=== PATIENT | female | born 1955 | race Caucasian/White ===

== ENCOUNTER 2016-12-05 17:45 | Inpatient (IN) | payer MEDICARE ==
--- NOTE | 2016-12-05 18:49 | EDPRACDOC ---
- General Information Chief Complaint: Abdominal Pain Stated Complaint: ABD PAIN; SBO SENT FROM PCP Time Seen by Provider: 12/05/16 18:32 Mode Of Arrival: Car Home Medications: Home Medications Aspirin (Enteric Coated) [Halfprin] 81 mg PO DAILY 01/02/14 Calcium Carbonate/Vitamin D3 [Calcium + Vit D Caplet (600mg/400IU)] 1 tab PO DAILY 01/02/14 [place]-3 Fatty Acids/Fish Oil [Fish Oil 1,000 mg Softgel] 1,000 mg PO DAILY 01/02 PEG-Electrolytes (Miralax) [Miralax] 17 gm PO DAILY 06/21/16 Ketorolac Tromethamine 10 mg PO Q6H PRN #20 tab 09/26/16 Allergies/Adverse Reactions: Allergies Allergy/AdvReac Type Severity Reaction Status Date / Time cephalexin [Cephalexin] Allergy Unknown Unknown/See Verified 12/05/16 18:23 Comments ciprofloxacin [From Cipro] Allergy Unknown Unknown/See Verified 12/05/16 18:23 Comments erythromycin base Allergy Unknown Unknown/See Verified 12/05/16 18:23 [Erythromycin Base] Comments metoclopramide HCl Allergy Unknown Difficulty Verified 12/05/16 18:23 [From Reglan] Breathing oxycodone [Oxycodone] Allergy Unknown Unknown/See Verified 12/05/16 18:23 Comments Penicillins Allergy Unknown Nausea/Vomi Verified 12/05/16 18:23 ting prochlorperazine maleate Allergy Unknown Unknown/See Verified 12/05/16 18:23 [From Compazine] Comments propoxyphene napsylate Allergy Unknown Verified 12/05/16 18:23 [From Darvocet-N 100] - History of Present Illness Onset: Friday night Pain Location: Reports: Diffuse Pain Context: Reports: Spontaneous Pain Severity: Mild Pain Quality: Reports: Aching Pain Radiation: Reports: No Radiation : No Adult Abdominal History: Reports: Abdominal Surgery, Bowel Obstruction Modifying Factors: improves with: Nothing Female Associated Signs & Symptoms: Reports: Nausea ED Past Medical History - History Reviewed Yes Nurses notes reviewed and agree except as marked - Patient Medical History Psychological History: Denies: Depression, Substance Use Disorder Systemic History: Denies: Cancer Additional Past Medical History: Hydrocephalus s/p PRINCIPAL TECHNICAL WRITER shunt. Congenital Deafness Surgical History: Reports: Hysterectomy, Other (TRACH AND REMOVAL, PRINCIPAL TECHNICAL WRITER SHUNT REMOVAL) - Family Medical History Reports: Hypertension (Aunt and Mom), Cancer (uncles and grandfather), Cardiac Disorders (grandmother-[place]) - Social Medical History Smoking Status: Never smoker Social History: Denies: Substance Use Disorder EDM Review of Systems - Review of Systems ROS Negative Except as Marked: Yes All systems reviewed and were negative except as marked - Physical Exam Constitutional: Alert (Awake), No apparent distress Oriented to: Person Last recorded Vital Signs: Last Vital Signs Temp 97.8 F 12/05/16 18:23 Pulse 76 12/05/16 18:23 Resp 20 12/05/16 18:23 BP 152/66 12/05/16 18:23 Pulse Ox 98 12/05/16 18:23 Oxygen Pulse Oxygen Saturation 98 O2 Device Oxygen Flow Rate Fraction of Inspired Oxygen ( FIO2) - HEENT Head: Normal ( normocephalic) Eye Exam: Normal (PERRL, EOMI, Sclera white) Oropharynx: Normal (Pharynx:Moist without exudate,Gums-no swelling) Tympanic Membrane: Normal ENT EAC: Normal TMJ: Normal Nose: No Symptoms Reported (septum midline) Neck: Normal (FROM, trachea at midline) - Respiratory/Cardiovascular Respiratory: Normal - CTA (BBS clear to auscultation without adventitious sounds ) Cardiovascular: Normal (RRR without murmur, gallop or rub) - GI Auscultation: Normal (NABS) Palpation: Normal (Soft,No rebound or guarding, non distended) Tenderness: Non tender Franklin's Sign: Negative - Musculoskeletal Back: Normal (Non-Tender) Extremities: Normal (Normal tone, Pulses 2+ No cyanosis or edema, FROM) - Integumentary Skin: Normal, Warm, Dry Lymphatics: Normal (no adenopathy) - Neurologic Memory Impaired: Normal Motor Function: Normal (Normal tone, Pulses 2+ No cyanosis or edema, FROM) Cranial Nerve: Normal (CN II-X11 intact sensation, strength 5/5) Cerebellar: Normal Mood Description: Normal Perception: Normal - Results 12/05/16 18:48 12/05/16 18:48 WBC 4.9 xk/uL (3.8-10.8) 12/05/16 18:48 RBC 4.96 xM/uL (4.20-5.40) 12/05/16 18:48 Hgb 14.4 g/dL (12.0-16.0) 12/05/16 18:48 Hct 43.9 % (36-47) 12/05/16 18:48 MCV 89 fL (81-99) 12/05/16 18:48 MCH 28.9 pg (27-32) 12/05/16 18:48 MCHC 32.7 g/dl (33-36) L 12/05/16 18:48 RDW 12.9 % (11.5-14.5) 12/05/16 18:48 Plt Count 207 xk/uL (130-400) 12/05/16 18:48 MPV 7.9 fL (7.4-10.4) 12/05/16 18:48 Neut % (Auto) Cancelled 12/05/16 18:48 Lymph % (Auto) Cancelled 12/05/16 18:48 [place] % (Auto) Cancelled 12/05/16 18:48 Eos % (Auto) Cancelled 12/05/16 18:48 Baso % (Auto) Cancelled 12/05/16 18:48 Absolute Neuts (auto) Cancelled 12/05/16 18:48 Absolute Lymphs (auto) Cancelled 12/05/16 18:48 Seg Neuts % (Manual) 46 % (45-76) 12/05/16 18:48 Band Neutrophils % 0 % (0-5) 12/05/16 18:48 Lymphocytes % (Manual) 30 % (17-44) 12/05/16 18:48 Monocytes % (Manual) 24 % (0-10) H 12/05/16 18:48 Absolute Neutrophils 2.25 xk/uL (1.7-8.2) 12/05/16 18:48 Absolute Lymphocytes 1.47 xk/uL (0.65-4.75) 12/05/16 18:48 Platelet Estimate Norm (NORMAL) 12/05/16 18:48 RBC Morphology 1+ aniso 12/05/16 18:48 PT 10.4 SEC (9.2-11.2) 12/05/16 18:48 INR 1.0 12/05/16 18:48 Sodium 138 mEq/L (137-146) 12/05/16 18:48 Potassium 3.7 mEq/L (3.5-5.1) 12/05/16 18:48 Chloride 102 mEq/L (98-107) 12/05/16 18:48 Carbon Dioxide 26 mMOL/L (22-33) 12/05/16 18:48 Anion Gap 14 mEq/L (8-16) 12/05/16 18:48 BUN 10 MG/DL (7-17) 12/05/16 18:48 Creatinine 0.50 MG/DL (0.52-1.04) L 12/05/16 18:48 Estimated GFR (MDRD) > 60 mL/min (>=60) 12/05/16 18:48 Glucose 80 MG/DL (70-99) 12/05/16 18:48 Calculated Osmolality 264 MOs/Kg (270-290) L 12/05/16 18:48 Calcium 9.0 MG/DL (8.4-10.2) 12/05/16 18:48 Total Bilirubin 0.5 MG/DL (0.2-1.3) 12/05/16 18:48 AST 32 IU/L (14-36) 12/05/16 18:48 ALT 48 IU/L (9-52) 12/05/16 18:48 Alkaline Phosphatase 69 IU/L (55-165) 12/05/16 18:48 Total Protein 7.1 G/DL (6.3-8.2) 12/05/16 18:48 Albumin 4.2 G/DL (3.5-5.0) 12/05/16 18:48 Lipase 44 U/L (23-300) 12/05/16 18:48 Urine Color Yellow 12/05/16 18:45 Urine Clarity Clear 12/05/16 18:45 Urine pH 6.0 (5.0-8.0) 12/05/16 18:45 Ur Specific [place] 1.005 12/05/16 18:45 Urine Protein Neg (NEG/TRACE) 12/05/16 18:45 Urine Glucose (UA) Neg (NEGATIVE) 12/05/16 18:45 Urine Ketones Neg (NEGATIVE) 12/05/16 18:45 Urine Occult Blood Neg (NEG/TRACE) 12/05/16 18:45 Urine Nitrite Neg (NEGATIVE) 12/05/16 18:45 Urine Bilirubin Neg (NEGATIVE) 12/05/16 18:45 Urine Urobilinogen 0.2 MG/DL (0-1) 12/05/16 18:45 Ur Leukocyte Esterase Neg (NEGATIVE) 12/05/16 18:45 Lab Results 12/05/16 12/05/16 12/05/16 18:48 18:48 18:48 WBC 4.9 RBC 4.96 Hgb 14.4 Hct 43.9 MCV 89 MCH 28.9 MCHC 32.7 L RDW 12.9 Plt Count 207 MPV 7.9 Neut % (Auto) Cancelled Lymph % (Auto) Cancelled [place] % (Auto) Cancelled Eos % (Auto) Cancelled Baso % (Auto) Cancelled Absolute Neuts (auto) Cancelled Absolute Lymphs (auto) Cancelled Seg Neuts % (Manual) 46 Band Neutrophils % 0 Lymphocytes % (Manual) 30 Monocytes % (Manual) 24 H Absolute Neutrophils 2.25 Absolute Lymphocytes 1.47 Platelet Estimate Norm RBC Morphology 1+ aniso PT 10.4 INR 1.0 Sodium 138 Potassium 3.7 Chloride 102 Carbon Dioxide 26 Anion Gap 14 BUN 10 Creatinine 0.50 L Estimated GFR (MDRD) > 60 Glucose 80 Calculated Osmolality 264 L Calcium 9.0 Total Bilirubin 0.5 AST 32 ALT 48 Alkaline Phosphatase 69 Total Protein 7.1 Albumin 4.2 Lipase 44 Urine Color Urine Clarity Urine pH Ur Specific [place] Urine Protein Urine Glucose (UA) Urine Ketones Urine Occult Blood Urine Nitrite Urine Bilirubin Urine Urobilinogen Ur Leukocyte Esterase 12/05/16 18:45 WBC RBC Hgb Hct MCV MCH MCHC RDW Plt Count MPV Neut % (Auto) Lymph % (Auto) [place] % (Auto) Eos % (Auto) Baso % (Auto) Absolute Neuts (auto) Absolute Lymphs (auto) Seg Neuts % (Manual) Band Neutrophils % Lymphocytes % (Manual) Monocytes % (Manual) Absolute Neutrophils Absolute Lymphocytes Platelet Estimate RBC Morphology PT INR Sodium Potassium Chloride Carbon Dioxide Anion Gap BUN Creatinine Estimated GFR (MDRD) Glucose Calculated Osmolality Calcium Total Bilirubin AST ALT Alkaline Phosphatase Total Protein Albumin Lipase Urine Color Yellow Urine Clarity Clear Urine pH 6.0 Ur Specific [place] 1.005 Urine Protein Neg Urine Glucose (UA) Neg Urine Ketones Neg Urine Occult Blood Neg Urine Nitrite Neg Urine Bilirubin Neg Urine Urobilinogen 0.2 Ur Leukocyte Esterase Neg - EKG EKG #1 [place]: Normal Rhythm: NSR Block: None Hypertrophy: None ST: Normal - Departure Yes I personally saw and evaluated the patient. Disposition: Admit IP To This Hospital Condition: Good Final Diagnosis: Abdominal pain, SBO Instructions: Acute Abdominal Pain (ED) Referrals: Eliecer De La Cruz MD [Primary Care Provider] - One Week Decision to Admit Time: 19:45 (JAYLAN) Decision to admit date: 12/05/16 Decision to admit: from ED
--- NOTE | 2016-12-05 18:58 | HISTPHYS ---
- Chief Complaint abdominal pain - History of Present Illness PRIMARY CARE PROVIDER: Dr. De La Cruz GI: Dr. Nuñez HPI: The patient is a 61 yo woman with recurrent small bowel obstructions who presents with abdominal pain. 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 She and her mother provide the history. Onset: yesterday. Duration: intermittent. Had 1 severe episode last night and 3 today. Location: upper abdomen and periumbilical. Radiation: sometimes to right back. Character: 5-6/10 and sharp. Alleviated by: Nothing. Exacerbated by: Nothing. Associated Symptoms: Nausea, abdominal pain, vomiting x 1, diarrhea. No constipation. Had minimal bloody stool x1. Small amount hematuria is possible. Treatments: none at home except usual medications. - Medical History GI/ History: Reports: Gastroesophageal Reflux (Dr. Nuñez), Diverticulosis ( Colonoscopy 06/2016 Dr. Nuñez. Also colon polyp, sm int hemorrhoids.), PMH GI Yes/No Other Systemic History: Reports: Anemia (Chronic anemia per Dr. Nuñez.), Other. Denies: Cancer Neurological History: Reports: Migraine Psychological History: Denies: Depression, Substance Use Disorder PMH: Migraines Recurrent small bowel obstructions GERD Chronic constipation Allergic rhinitis Deafness - since 5 yrs old. 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 Cholecystectomy 10/[address] Rao Ex lap for small bowel obstruction 09/2005 - Surgical History Reports: Appendectomy, Cholecystectomy (Dr. Rao, 2004), Hysterectomy (1984. Also diverticulitis surgery.), Other (TRACH AND REMOVAL, SHEET METAL WORK FURNACE INSTALLER SHUNT REMOVAL. Brain tumor 1988. Other abd surgery.) - Medictions/Allergies Allergies cephalexin [Cephalexin] Allergy (Unknown, Verified 12/05/16 18:23) Unknown/See Comments UNK PER MOM ciprofloxacin [From Cipro] Allergy (Unknown, Verified 12/05/16 18:23) Unknown/See Comments UNKNOWN REACTION PER MOM erythromycin base [Erythromycin Base] Allergy (Unknown, Verified 12/05/16 18:23) Unknown/See Comments UNKNOWN REACTION PER MOM metoclopramide HCl [From Reglan] Allergy (Unknown, Verified 12/05/16 18:23) Difficulty Breathing oxycodone [Oxycodone] Allergy (Unknown, Verified 12/05/16 18:23) Unknown/See Comments UNKNOWN REACTION PER MOM Penicillins Allergy (Unknown, Verified 12/05/16 18:23) Nausea/Vomiting prochlorperazine maleate [From Compazine] Allergy (Unknown, Verified 12/05/16 18 :23) Unknown/See Comments SYNCOPE propoxyphene napsylate [From Darvocet-N 100] Allergy (Verified 12/05/16 18:23) Unknown Current Medication List: Reviewed Home Medications Aspirin (Enteric Coated) [Halfprin] 81 mg PO DAILY 01/02/14 Calcium Carbonate/Vitamin D3 [Calcium + Vit D Caplet (600mg/400IU)] 1 tab PO DAILY 01/02/14 [place]-3 Fatty Acids/Fish Oil [Fish Oil 1,000 mg Softgel] 1,000 mg PO DAILY 01/02 Vitamins, Multiple [Unicap] 1 cap PO DAILY 01/02/14 PEG-Electrolytes (Miralax) [Miralax] 17 gm PO DAILY 06/21/16 Ketorolac Tromethamine 10 mg PO Q6H PRN #20 tab 09/26/16 - Family History Reports: Hypertension (Aunt and Mom), Cancer (uncles and grandfather), Cardiac Disorders (grandmother-[place]) - Social History Lives: With Family (lives with her mother) Smoking Status: Never smoker Social History: Denies: Alcohol Use, Substance Use Disorder - Review of Systems GENERAL: No Fever, chills, or diaphoresis. Positive for fatigue/malaise. HEENT: No ear pain or discharge. No nasal discharge or bleeding. No throat pain or swelling. No eye pain or eye redness. RESPIRATORY: No cough, wheezing, or shortness of breath. CARDIOVASCULAR: No chest pain or palpitations. GI: See HPI>. NEUROLOGICAL: No headache or focal weakness. INTEGUMENT: no rashes, itching, or lesions. LYMPHATIC SYSTEM: no lymph node swelling or pain. MUSCULOSKELETAL: no pain or joint swelling. GENITOURINARY: No dysuria or hematuria. ENDOCRINE: No polyuria or polydipsia. HEME: No chronic anemia, bleeding, or easy bruising. - Physical Exam Vital Signs: Initial Vitals Temperature 97.8 F 12/05/16 18:23 Pulse Rate 76 12/05/16 18:23 Respiratory Rate 20 12/05/16 18:23 Blood Pressure 152/66 12/05/16 18:23 Pulse Oxygen Saturation 98 12/05/16 18:23 Weight: 49.9 kg Height: 5 feet 2 inches BMI: 20.1 - Other Exam Other Exam Findings: GENERAL: Ill-appearing, well nourished, in acute distress. HEENT: Head shape abnormal, atraumatic, long face, bilateral eyes are downsloping. Micrognathia. Pupils equal, reactive to light, and round. Nares patent, without discharge or bleeding. No oropharyngeal lesions or erythema. Mucous membranes are dry. NECK: is supple, no masses, trachea midline. Old tracheostomy site noted. RESPIRATORY: Clear to auscultation bilaterally. Chest wall movements are symmetric. No use of accessory muscles to breathe. No wheezing, rales, rhonchi. CARDIOVASCULAR: Normal S1, S2. No murmurs, rubs, or gallops. PMI non-displaced. Carotids: no carotid bruits. No bradycardia or tachycardia. DP pulses 1-2+ bilaterally. GI: soft, non-distended, hyperactive bowel sounds. No hepatosplenomegaly. Old surgical scars noted. Tenderness generalized but worse in the periumbilical and epigastric areas. Right CVA tenderness. INTEGUMENT: Clean, dry, and intact. No rashes. No lesions. MUSCULOSKELETAL: Moving all extremities. No cyanosis. No clubbing. Edema: none bilaterally. NEUROLOGICAL: Cranial nerves 2-12 grossly intact, except: patient is deaf. Motor 5/5 throughout. Reflexes: 2+ bilaterally. Babinski: toes downgoing bilaterally. Intact Finger to nose. Sensory grossly intact to light touch. Intact rapid alternating movements bilaterally. No pronator drift. PSYCHIATRIC: Fully oriented. Normal and appropriate affect. LYMPHATIC: No cervical lymphadenopathy. No supraclavicular lymphadenopathy. - Lab Results Laboratory Results - last 24 hr 12/05/16 12/05/16 12/05/16 18:45 18:48 18:48 WBC 4.9 RBC 4.96 Hgb 14.4 Hct 43.9 MCV 89 MCH 28.9 MCHC 32.7 L RDW 12.9 Plt Count 207 MPV 7.9 Neut % (Auto) Cancelled Lymph % (Auto) Cancelled [place] % (Auto) Cancelled Eos % (Auto) Cancelled Baso % (Auto) Cancelled Absolute Neuts (auto) Cancelled Absolute Lymphs (auto) Cancelled Seg Neuts % (Manual) 46 Band Neutrophils % 0 Lymphocytes % (Manual) 30 Monocytes % (Manual) 24 H Absolute Neutrophils 2.25 Absolute Lymphocytes 1.47 Platelet Estimate Norm RBC Morphology 1+ aniso PT INR Sodium 138 Potassium 3.7 Chloride 102 Carbon Dioxide 26 Anion Gap 14 BUN 10 Creatinine 0.50 L Estimated GFR (MDRD) > 60 Glucose 80 Calculated Osmolality 264 L Calcium 9.0 Magnesium Total Bilirubin 0.5 AST 32 ALT 48 Alkaline Phosphatase 69 Total Protein 7.1 Albumin 4.2 Lipase 44 Urine Color Yellow Urine Clarity Clear Urine pH 6.0 Ur Specific [place] 1.005 Urine Protein Neg Urine Glucose (UA) Neg Urine Ketones Neg Urine Occult Blood Neg Urine Nitrite Neg Urine Bilirubin Neg Urine Urobilinogen 0.2 Ur Leukocyte Esterase Neg 12/05/16 12/05/16 18:48 18:48 WBC RBC Hgb Hct MCV MCH MCHC RDW Plt Count MPV Neut % (Auto) Lymph % (Auto) [place] % (Auto) Eos % (Auto) Baso % (Auto) Absolute Neuts (auto) Absolute Lymphs (auto) Seg Neuts % (Manual) Band Neutrophils % Lymphocytes % (Manual) Monocytes % (Manual) Absolute Neutrophils Absolute Lymphocytes Platelet Estimate RBC Morphology PT 10.4 INR 1.0 Sodium Potassium Chloride Carbon Dioxide Anion Gap BUN Creatinine Estimated GFR (MDRD) Glucose Calculated Osmolality Calcium Magnesium 2.40 H Total Bilirubin AST ALT Alkaline Phosphatase Total Protein Albumin Lipase Urine Color Urine Clarity Urine pH Ur Specific [place] Urine Protein Urine Glucose (UA) Urine Ketones Urine Occult Blood Urine Nitrite Urine Bilirubin Urine Urobilinogen Ur Leukocyte Esterase - Diagnostic Findings DIAGNOSTIC DATA: EK bpm. Normal sinus rhythm. Right axis deviation. Flat T wave in 3. Reviewed EKG personally. IMAGING: CT abdomen and pelvis, viewed personally: CLINICAL DATA: Lower abdominal and pelvic pain with vomiting for 3 days. Cholecystectomy. Appendectomy. Hysterectomy. Colon surgery secondary to diverticulitis. Hernia repair. No history of primary malignancy. EXAM: CT ABDOMEN AND PELVIS WITH CONTRAST TECHNIQUE: Multidetector CT imaging of the abdomen and pelvis was performed using the standard protocol following bolus administration of intravenous contrast. CONTRAST: 80 cc of Isovue 370 COMPARISON: 09/26/2016 FINDINGS: Lower chest: Clear lung bases. Normal heart size without pericardial or pleural effusion. Hepatobiliary: Right hepatic lobe cyst and too small to characterize liver lesion. Cholecystectomy, without biliary ductal dilatation. Pancreas: Normal, without mass or ductal dilatation. Spleen: Subcentimeter low-density splenic lesion is of doubtful clinical significance. Adrenals/Urinary Tract: Normal adrenal glands. Markedly atrophic left kidney. Interpolar right renal collecting system 5 mm stone. No hydronephrosis. Pelvic floor laxity with mild cystocele. Stomach/Bowel: Normal stomach, without wall thickening. Decompressed colon, especially distally. Scattered colonic diverticula. Contrast filled proximal and mid small bowel loops, measuring maximally 4.1 cm. Mid small bowel transition is likely identified on image 63/series 2. No obstructive mass identified. No pneumatosis or free intraperitoneal air. No bowel wall thickening to suggest complicating ischemia. Vascular/Lymphatic: Normal caliber of the aorta and branch vessels. No abdominopelvic adenopathy. Reproductive: Hysterectomy. No adnexal mass. Other: No significant free fluid. No ascites. Musculoskeletal: Convex right thoracolumbar spine curvature. IMPRESSION: 1. Partial small bowel obstruction, at the level of the mid small bowel, likely secondary to adhesions. No evidence of ischemia or other acute complication. 2. Pelvic floor laxity with mild cystocele. 3. Right nephrolithiasis. Markedly atrophic left kidney. These results will be called to the ordering clinician or hobbies and crafts sales representative by the Radiology Department at the imaging location. - Assessment (1) Partial small bowel obstruction K56.69 - OTHER INTESTINAL OBSTRUCTION Acute Present on Admission: Yes Partial small bowel obstruction. Patient has frequent partial SBO. Has had several abdominal surgeries. Plan: NG tube. NPO except meds. Once improving then consider advancing diet. Consult surgery if no improvement. Her surgeon for past abdominal surgeries was Dr. Rao. (2) Nephrolithiasis N20.0 - CALCULUS OF KIDNEY Acute Present on Admission: Yes She does have some pain in the right back. Could also have pain due to kidney stone, or it could all be due to the small bowel obstruction. Plan: Treat SBO. Follow up as an outpatient with a urologist. (3) Abdominal pain, periumbilical R10.33 - PERIUMBILICAL PAIN Acute Present on Admission: Yes And also other parts of the abdomen. Plan: IV morphine prn. Treat small bowel obstruction. (4) Nausea and vomiting R11.2 - NAUSEA WITH VOMITING, UNSPECIFIED Acute Present on Admission: Yes Qualifiers: Vomiting type: V Vomiting Intractability: V Plan: PRN medications. (5) Diarrhea R19.7 - DIARRHEA, UNSPECIFIED Acute Present on Admission: Yes Qualifiers: Diarrhea type: unspecified type Qualified Code(s): R19.7 - Diarrhea, unspecified Usually has chronic constipation. Had some diarrhea on the day of admission. Plan: Monitor stool. If she has persistent diarrhea, consider further evaluation. Case Care Discussed with: Patient, Family, Nursing Staff
[2016-12-05 19:08] LABS: MPV 7.9 fL (7.4-10.4)
[2016-12-05 19:09] LABS: LEUKOCYTES/URINE NEG (NEGATIVE); NITRITE/URINE NEG (NEGATIVE); URINE OCCULT BLOOD NEG (NEG/TRACE)
[2016-12-05 19:27] LABS: BLOOD UREA NITROGEN 10 MG/DL (7-17); CALCULATED OSMOLALITY 264 MOs/Kg (270-290); CHLORIDE 102 mEq/L (98-107); GLUCOSE 80 MG/DL (70-99); SODIUM LEVEL 138 mEq/L (137-146); TOTAL PROTEIN 7.1 G/DL (6.3-8.2)
[2016-12-05 19:40] LABS: SEG NEUTROPHIL 46 % (45-76)
[2016-12-05] MEDS ORDERED: BISACODYL 5 MG TAB PO PRN (20:44)
[2016-12-05] MEDS ORDERED: SENNA CONCENTRATE TAB PO PRN (20:44)
[2016-12-05] MEDS ORDERED: GUAIFEN 100 MG-DEXTROMETH 10 MG PER 5 ML PO PRN (20:44)
[2016-12-05] MEDS ORDERED: TEMAZEPAM 15 MG CAP PO PRN (20:44)
[2016-12-05] MEDS ORDERED: ACETAMINOPHEN 325 MG SUPP PR PRN (20:44)
[2016-12-05] MEDS ORDERED: PROMETHAZINE 25 MG/ML VIAL IV PRN (20:44)
[2016-12-05] MEDS ORDERED: Aluminum;Magnesium;Simethicone 30 ML UDC PO PRN (20:44)
[2016-12-05] MEDS ORDERED: BENZONATATE 100 MG PERLES PO PRN (20:44)
[2016-12-05] MEDS ORDERED: ACETAMINOPHEN 325 MG/TAB TABLET PO PRN (20:44)
[2016-12-05] MEDS: MORPHINE 2 MG/ML INJECTION IV PRN (20:47)
[2016-12-05] MEDS: NS 1,000 ML IV SCH (21:12)
[2016-12-05] MEDS: ENOXAPARIN 40 MG/0.4 ML PFS SQ SCH (21:59)
[2016-12-06] MEDS: MORPHINE 2 MG/ML INJECTION IV PRN ×3 (00:49→16:52)
[2016-12-06] MEDS: NS 1,000 ML IV SCH ×3 (04:54→21:30)
[2016-12-06 07:14] LABS: MPV 8.1 fL (7.4-10.4)
[2016-12-06 07:17] LABS: BLOOD UREA NITROGEN 10 MG/DL (7-17); CALCIUM 8.5 MG/DL (8.4-10.2); CALCULATED OSMOLALITY 272 MOs/Kg (270-290); CHLORIDE 105 mEq/L (98-107); GLUCOSE 96 MG/DL (70-99); SODIUM LEVEL 142 mEq/L (137-146)
[2016-12-06] MEDS: IMIPENEM CILASTATIN 250 MG in D5W 100 ML IV SCH ×3 (10:16→21:28)
--- NOTE | 2016-12-06 14:13 | DIRPT ---
CLINICAL DATA: Partial small bowel obstruction EXAM: DG ABDOMEN ACUTE W/ 1V CHEST COMPARISON: 12/05/2016 CT FINDINGS: NG tube is coiled in the stomach. Significantly dilated left abdominal and pelvic small bowel loop. Gas and stool noted within colon. Findings most compatible with partial small bowel obstruction, similar to prior CT. No free air organomegaly. Prior cholecystectomy. Cardiomegaly. Mild hyperinflation/COPD. Patchy airspace disease in the right lower lung. No effusions. Right central line tip is in the mid right atrium. No pneumothorax. IMPRESSION: Dilated small bowel loops. Findings compatible with partial small bowel obstruction, not significantly changed since prior CT. NG tube coils in the stomach. Patchy right lower lung airspace disease. Cannot exclude pneumonia. Electronically Signed By: Jefferson Soto M.D. On: 12/06/2016 14:10
--- NOTE | 2016-12-06 14:17 | GENMEDPROG ---
Chief Complaint: Severe pain. Feels very hot to touch and feverish. Notes Reviewed: Yes Events from last night noted and discussed with Clinical Staff Current Medication List: Reviewed Currently: Reports: Nausea and Vomiting, Abdominal Pain (Severe 08/26). Denies : Cough, Wheezing, PADRON, SOB DVT Prophylaxis: Yes - Physical Examination Vital Signs and I&O: Last Vital Signs Temp 100.7 F H 12/06/16 12:02 Pulse 116 12/06/16 09:50 Resp 20 12/06/16 09:50 BP 124/53 L 12/06/16 09:50 Pulse Ox 91 12/06/16 09:50 Oxygen Pulse Oxygen Saturation 91 O2 Device Room Air Oxygen Flow Rate Fraction of Inspired Oxygen ( FIO2) Intake & Output 12/03/16 12/04/16 12/05/16 12/06/16 23:59 23:59 23:59 23:59 Intake Total 103 1508 Output Total 150 500 Balance -47 1008 Patient's weight 50.031 kg 50.491 kg General: Alert, Oriented x3, Cooperative HEENT: PERRLA, Anicteric Sclera. negative: Normal (Treacher Maxwell) Neck: Non-tender, Full range of motion, Normal Trachea alignment. negative: JVD Lymphatics: Normal (no adenopathy). negative: Adenopathy Respiratory: Normal - CTA (BBS clear to auscultation without adventitious sounds ) Cardiovascular: Regular rate and rhythm GI: Tenderness (Severely tender with guarding), Guarding. negative: Normal bowel sounds, Soft Extremities/Musculoskeletal: Normal pulses. negative: Tenderness, Swelling, Edema Skin: No rashes, No breakdown, Other (Hot to touch) Neurological: Normal speech, Strength at 5/5 X4 ext, Normal tone, Cranial nerves 3-12 NL Psych/Mental Status: Agitated, Anxious Lab/DI/Studies Reviewed: Laboratory Results - last 24 hr 12/05/16 12/05/16 12/05/16 18:45 18:48 18:48 WBC 4.9 RBC 4.96 Hgb 14.4 Hct 43.9 MCV 89 MCH 28.9 MCHC 32.7 L RDW 12.9 Plt Count 207 MPV 7.9 Neut % (Auto) Cancelled Lymph % (Auto) Cancelled [place] % (Auto) Cancelled Eos % (Auto) Cancelled Baso % (Auto) Cancelled Absolute Neuts (auto) Cancelled Absolute Lymphs (auto) Cancelled Seg Neuts % (Manual) 46 Band Neutrophils % 0 Lymphocytes % (Manual) 30 Monocytes % (Manual) 24 H Absolute Neutrophils 2.25 Absolute Lymphocytes 1.47 Platelet Estimate Norm RBC Morphology 1+ aniso PT INR Sodium 138 Potassium 3.7 Chloride 102 Carbon Dioxide 26 Anion Gap 14 BUN 10 Creatinine 0.50 L Estimated GFR (MDRD) > 60 Glucose 80 Calculated Osmolality 264 L Calcium 9.0 Magnesium Total Bilirubin 0.5 AST 32 ALT 48 Alkaline Phosphatase 69 Total Protein 7.1 Albumin 4.2 Lipase 44 Urine Color Yellow Urine Clarity Clear Urine pH 6.0 Ur Specific [place] 1.005 Urine Protein Neg Urine Glucose (UA) Neg Urine Ketones Neg Urine Occult Blood Neg Urine Nitrite Neg Urine Bilirubin Neg Urine Urobilinogen 0.2 Ur Leukocyte Esterase Neg 12/05/16 12/05/16 12/06/16 18:48 18:48 06:15 WBC RBC Hgb Hct MCV MCH MCHC RDW Plt Count MPV Neut % (Auto) Lymph % (Auto) [place] % (Auto) Eos % (Auto) Baso % (Auto) Absolute Neuts (auto) Absolute Lymphs (auto) Seg Neuts % (Manual) Band Neutrophils % Lymphocytes % (Manual) Monocytes % (Manual) Absolute Neutrophils Absolute Lymphocytes Platelet Estimate RBC Morphology PT 10.4 INR 1.0 Sodium 142 Potassium 3.9 Chloride 105 Carbon Dioxide 31 Anion Gap 10 BUN 10 Creatinine 0.60 Estimated GFR (MDRD) > 60 Glucose 96 Calculated Osmolality 272 Calcium 8.5 Magnesium 2.40 H Total Bilirubin AST ALT Alkaline Phosphatase Total Protein Albumin Lipase Urine Color Urine Clarity Urine pH Ur Specific [place] Urine Protein Urine Glucose (UA) Urine Ketones Urine Occult Blood Urine Nitrite Urine Bilirubin Urine Urobilinogen Ur Leukocyte Esterase 12/06/16 06:15 WBC 5.4 RBC 4.48 Hgb 13.2 Hct 39.1 MCV 87 MCH 29.4 MCHC 33.8 RDW 12.8 Plt Count 203 MPV 8.1 Neut % (Auto) Lymph % (Auto) [place] % (Auto) Eos % (Auto) Baso % (Auto) Absolute Neuts (auto) Absolute Lymphs (auto) Seg Neuts % (Manual) Band Neutrophils % Lymphocytes % (Manual) Monocytes % (Manual) Absolute Neutrophils Absolute Lymphocytes Platelet Estimate RBC Morphology PT INR Sodium Potassium Chloride Carbon Dioxide Anion Gap BUN Creatinine Estimated GFR (MDRD) Glucose Calculated Osmolality Calcium Magnesium Total Bilirubin AST ALT Alkaline Phosphatase Total Protein Albumin Lipase Urine Color Urine Clarity Urine pH Ur Specific [place] Urine Protein Urine Glucose (UA) Urine Ketones Urine Occult Blood Urine Nitrite Urine Bilirubin Urine Urobilinogen Ur Leukocyte Esterase - Assessment (1) Partial small bowel obstruction Acute K56.69 - OTHER INTESTINAL OBSTRUCTION Comment/Plan: Severely tender. Significant guarding. She is also feverish and extremely hot to touch. Will add Primaxin. Have asked surgery to see in consultation. (2) Abdominal pain Acute R10.9 - UNSPECIFIED ABDOMINAL PAIN Comment/Plan: Severe. Rates it a 10/10. Given high fever concerned about perforation. Start on IV imipenem. Have asked surgery to see urgently (3) Nausea and vomiting Acute R11.2 - NAUSEA WITH VOMITING, UNSPECIFIED Qualifiers: Vomiting type: unspecified Vomiting Intractability: non-intractable Qualified Code(s): R11.2 - Nausea with vomiting, unspecified Comment/Plan: NG tube in place. Pain control and p.r.n. anti emetics. (4) Dehydration Acute E86.0 - DEHYDRATION Comment/Plan: IV fluids and supportive care Case Care Discussed with: Patient, Consultants, Family, Nursing Staff, Resource Management, Respiratory Therapy
[2016-12-06] MEDS ORDERED: SUMATRIPTAN SUCCINATE 25 MG TAB PO ONE (16:00)
[2016-12-06] MEDS: ENOXAPARIN 40 MG/0.4 ML PFS SQ SCH (16:57)
[2016-12-06] MEDS: ONDANSETRON HCL 4 MG/2 ML VIAL IV PRN (17:05)
--- NOTE | 2016-12-06 19:40 | PCM.SURGCO ---
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 This was sharp 04/26. No alleviating factors present. She had Nausea, vomiting and diarrhea. She had workup which showed changes c/w SBO. She has had seveal abdominal surgeries including Jin's and colostomy takedown as well as cholecystectomy. Chief Complaint: abdominal pain - Past Medical and Surgical History Cardiac History: Reports: No Significant History. 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 (mandibular dysplasia, malar hypoplasia, ear deformities, ) Allergies cephalexin [Cephalexin] Allergy (Unknown, Verified 12/05/16 18:23) Unknown/See Comments UNK PER MOM ciprofloxacin [From Cipro] Allergy (Unknown, Verified 12/05/16 18:23) Unknown/See Comments UNKNOWN REACTION PER MOM erythromycin base [Erythromycin Base] Allergy (Unknown, Verified 12/05/16 18:23) Unknown/See Comments UNKNOWN REACTION PER MOM metoclopramide HCl [From Reglan] Allergy (Unknown, Verified 12/05/16 18:23) Difficulty Breathing oxycodone [Oxycodone] Allergy (Unknown, Verified 12/05/16 18:23) Unknown/See Comments UNKNOWN REACTION PER MOM Penicillins Allergy (Unknown, Verified 12/05/16 18:23) Nausea/Vomiting prochlorperazine maleate [From Compazine] Allergy (Unknown, Verified 12/05/16 18 :23) Unknown/See Comments SYNCOPE propoxyphene napsylate [From Darvocet-N 100] Allergy (Verified 12/05/16 18:23) Unknown Home Medications Aspirin (Enteric Coated) [Halfprin] 81 mg PO DAILY 01/02/14 Calcium Carbonate/Vitamin D3 [Calcium + Vit D Caplet (600mg/400IU)] 1 tab PO DAILY 01/02/14 [place]-3 Fatty Acids/Fish Oil [Fish Oil 1,000 mg Softgel] 1,000 mg PO DAILY 01/02 PEG-Electrolytes (Miralax) [Miralax] 17 gm PO DAILY 06/21/16 Ketorolac Tromethamine 10 mg PO Q6H PRN #20 tab 09/26/16 - Social History Social History: Denies: Substance Use Disorder - Family History Reports: Hypertension (Aunt and Mom), Cancer (uncles and grandfather), Cardiac Disorders (grandmother-OK) - Review of Systems Constitutional: negative: Chills, Fever Ears: negative: Drainage, Tinnitus Nose: negative: Deformity, Ecchymosis Respiratory: negative: Cough, Hemoptysis, Wheezing Cardiovascular: negative: Chest Pain, Palpitations Gastrointestinal: Nausea, Abdominal Pain. negative: Vomiting, Melena, Hematochezia Genitourinary: negative: Dysuria, Hematuria Neurological: Headache. negative: Dizziness, Seizure Musculoskeletal:: negative: Joint Pain, Muscle Pain Integumentary: negative: Itching, Wound Allergic/Immunologic: negative: Hives, Itching Hematologic: negative: Easy Bruising, Easy Bleeding Psychiatric: negative: Anxiety, Depression - Physical Exam Vital Signs: Initial Vitals Temperature 97.8 F 12/05/16 18:23 Pulse Rate 76 12/05/16 18:23 Respiratory Rate 20 12/05/16 18:23 Blood Pressure 152/66 12/05/16 18:23 Pulse Oxygen Saturation 98 12/05/16 18:23 Constitutional: No apparent distress. negative: Confused Oriented to: Time, Person, Place - HEENT Head: Deformity. negative: Normal Respiratory: negative: Diminished, Rales, Rhonchi, Wheezes Cardiovascular: Normal. negative: Bradycardia, Tachycardia - GI Auscultation: Normal Palpation: negative: Enlarged liver, Fluid Wave Tenderness: Other (distended). negative: Moderate, Guarding, Rebound - Musculoskeletal Back: negative: Ecchymosis, CVA Tenderness Extremities: negative: Clubbing, Cyanosis, Edema - Integumentary Skin: Warm, Dry Lymphatics: negative: Adenopathy, Inguinal Erythema - Neurologic Mood Description: Appropriate. 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 Now with symptoms consistent with SBO. Will try to treat conservatively with bowel rest, NGT suction and IVF. If does not improve promptly, will need to have surgery.
[2016-12-07] MEDS: MORPHINE 2 MG/ML INJECTION IV PRN ×4 (02:29→21:01)
[2016-12-07] MEDS: IMIPENEM CILASTATIN 250 MG in D5W 100 ML IV SCH ×4 (04:12→21:01)
[2016-12-07] MEDS: NS 1,000 ML IV SCH ×4 (06:12→23:22)
--- NOTE | 2016-12-07 12:54 | GENMEDPROG ---
Chief Complaint: Abdomen soft her today with less pain and discomfort. Still with significant NG tube output. Still appears obstructed. Notes Reviewed: Yes Events from last night noted and discussed with Clinical Staff Current Medication List: Reviewed Currently: Reports: Nausea and Vomiting, Abdominal Pain (Severe 08/26). Denies : Cough, Wheezing, PADRON, SOB DVT Prophylaxis: Yes - Physical Examination Vital Signs and I&O: Last Vital Signs Temp 98.0 F 12/07/16 10:00 Pulse 74 12/07/16 10:00 Resp 16 12/07/16 10:00 BP 102/54 L 12/07/16 10:00 Pulse Ox 93 12/07/16 10:00 Oxygen Pulse Oxygen Saturation 93 O2 Device Room Air Oxygen Flow Rate Fraction of Inspired Oxygen ( FIO2) Intake & Output 12/04/16 12/05/16 12/06/16 12/07/16 23:59 23:59 23:59 23:59 Intake Total 103 2560 1357 Output Total 150 2125 600 Balance -47 435 757 Patient's weight 50.031 kg 50.491 kg 51.029 kg General: Alert, Oriented x3, Cooperative HEENT: PERRLA, EOMI, Anicteric Sclera. negative: Normal (Treacher Maxwell) Neck: Non-tender, Full range of motion, Normal Trachea alignment. negative: JVD Lymphatics: Normal (no adenopathy). negative: Adenopathy Respiratory: Normal - CTA (BBS clear to auscultation without adventitious sounds ) Cardiovascular: Regular rate and rhythm GI: Tenderness (Severely tender with guarding), Guarding. negative: Normal bowel sounds, Soft Extremities/Musculoskeletal: Normal pulses. negative: Tenderness, Swelling, Edema Skin: No rashes, No breakdown, Other (Hot to touch) Neurological: Normal speech, Strength at 5/5 X4 ext, Normal tone, Cranial nerves 3-12 NL Psych/Mental Status: Agitated, Anxious - Assessment (1) Partial small bowel obstruction Acute K56.69 - OTHER INTESTINAL OBSTRUCTION Comment/Plan: Less tender and distended today. No further guarding. Some migraine headaches. Less feverish appearing. Appreciate surgery evaluation. Still appears obstructed and may require surgery (2) Abdominal pain Acute R10.9 - UNSPECIFIED ABDOMINAL PAIN Comment/Plan: Much better today. Rates it a 2/10. Continue NG tube decompression and supportive care. Surgery following (3) Nausea and vomiting Acute R11.2 - NAUSEA WITH VOMITING, UNSPECIFIED Qualifiers: Vomiting type: unspecified Vomiting Intractability: non-intractable Qualified Code(s): R11.2 - Nausea with vomiting, unspecified Comment/Plan: NG tube in place. Pain control and p.r.n. anti emetics. (4) Dehydration Acute E86.0 - DEHYDRATION Comment/Plan: IV fluids and supportive care (5) Migraine Acute G43.909 - MIGRAINE, UNSP, NOT INTRACTABLE, WITHOUT STATUS MIGRAINOSUS Qualifiers: Migraine type: without aura Status migrainosus presence: without status migrainosus Intractability: not intractable Qualified Code(s): G43.009 - Migraine without aura, not intractable, without status migrainosus Comment/Plan: Intermittent. Uses Imitrex at home. Case Care Discussed with: Patient, Family, Nursing Staff, Resource Management, Respiratory Therapy
--- NOTE | 2016-12-07 14:41 | PCM.SURGRO ---
- Subjective Patient: Reports: Feels better, No Flatus, No Bowel Movement - Objective / Physical Exam Vital Signs: Temperature: 98.0 F (12/07/16 13:44) HR: 85 (12/07/16 13:44)RR: 18 (12/07/16 13: 44) BP: 112/55 (12/07/16 13:44)Pulse Ox: 92 (12/07/16 13:44) General: Alert, Oriented x3, Cooperative Respiratory: Normal - CTA Cardiovascular: Regular rate and rhythm Gastrointestinal: Soft, Bowel Sounds, Tender (minimally). negative: Distended, Guarding, Hernia Skin: Warm,Dry and Intact, No rashes, No breakdown Laboratory/Diagnostics Reviewed: 12/06/16 06:15 12/06/16 06:15 - Assessment and Plan (1) Abdominal pain Acute R10.9 - UNSPECIFIED ABDOMINAL PAIN Present on Admission: Yes (2) Nausea and vomiting Acute R11.2 - NAUSEA WITH VOMITING, UNSPECIFIED Present on Admission: Yes unspecified non-intractable R11.2 - Nausea with vomiting, unspecified (3) Partial small bowel obstruction Acute K56.69 - OTHER INTESTINAL OBSTRUCTION Present on Admission: Yes Plan: Patient with bowel obstruction. She is clinically better today with minimal discomfort, no abdominal distension.Will continue with conservative treatment for now. Recheck Xrays in AM.
[2016-12-07] MEDS: SUMATRIPTAN SUCCINATE 25 MG TAB PO PRN (16:00)
[2016-12-07] MEDS: ONDANSETRON HCL 4 MG/2 ML VIAL IV PRN (16:22)
[2016-12-07] MEDS: ENOXAPARIN 40 MG/0.4 ML PFS SQ SCH (18:18)
[2016-12-08] MEDS: ONDANSETRON HCL 4 MG/2 ML VIAL IV PRN (00:10)
[2016-12-08] MEDS: MORPHINE 2 MG/ML INJECTION IV PRN ×4 (02:04→20:43)
[2016-12-08] MEDS: IMIPENEM CILASTATIN 250 MG in D5W 100 ML IV SCH ×4 (05:09→21:55)
[2016-12-08] MEDS: NS 1,000 ML IV SCH ×3 (08:11→22:00)
[2016-12-08 08:54] LABS: AUTOMATED BASOPHIL 0.2 % (0-2); AUTOMATED EOSINOPHIL 0.2 % (0-5); AUTOMATED LYMPH 8.4 % (17-44); AUTOMATED MONOCYTE 8.9 % (3-10); AUTOMATED NEUTROPHIL 82.3 % (45-76); MPV 8.3 fL (7.4-10.4)
[2016-12-08 09:13] LABS: BLOOD UREA NITROGEN 16 MG/DL (7-17); CALCIUM 8.4 MG/DL (8.4-10.2); CALCULATED OSMOLALITY 275 MOs/Kg (270-290); CHLORIDE 110 mEq/L (98-107); GLUCOSE 73 MG/DL (70-99); SODIUM LEVEL 143 mEq/L (137-146)
--- NOTE | 2016-12-08 09:16 | DIRPT ---
CLINICAL DATA: Small bowel obstruction EXAM: DG ABDOMEN ACUTE W/ 1V CHEST COMPARISON: 12/06/2016 FINDINGS: Cardiomediastinal silhouette is stable. There is NG tube coiled within stomach with tip in proximal stomach. Postcholecystectomy surgical clips are noted. There is small bilateral pleural effusion. Hazy right basilar atelectasis or infiltrate. No pulmonary edema. Right IJ central line with tip in right atrium. Persistent gaseous distended small bowel loops and left lower quadrant consistent with ileus or partial obstruction. Contrast material and gas noted throughout the colon. No free abdominal air. IMPRESSION: There is small bilateral pleural effusion. Hazy right basilar atelectasis or infiltrate. Right IJ central line with tip in right atrium. NG tube coiled within stomach with tip in proximal stomach. Persistent gaseous distended small bowel loops in left lower quadrant consistent with ileus or partial bowel obstruction. Contrast material and gas noted throughout the colon. Electronically Signed By: Judah Olvera M.D. On: 12/08/2016 09:14
[2016-12-08] MEDS ORDERED: NS 1,000 ML IV SCH (09:47)
[2016-12-08] MEDS ORDERED: AMINO ACIDS IV SCH (10:00)
[2016-12-08] MEDS ORDERED: DEXTROSE IV SCH (10:00)
--- NOTE | 2016-12-08 10:15 | GENMEDPROG ---
Chief Complaint: SBO, N&V, abdominal pain, Currently: Reports: Nausea and Vomiting, Abdominal Pain (Severe 10/10). Denies : Cough, Wheezing, PADRON, SOB DVT Prophylaxis: Yes - Physical Examination Vital Signs and I&O: Last Vital Signs Temp 98.5 F 12/08/16 05:26 Pulse 87 12/08/16 05:26 Resp 20 12/08/16 05:26 BP 117/52 L 12/08/16 05:26 Pulse Ox 93 12/08/16 05:26 Oxygen Pulse Oxygen Saturation 93 O2 Device Room Air Oxygen Flow Rate Fraction of Inspired Oxygen ( FIO2) Intake & Output 12/05/16 12/06/16 12/07/16 12/08/16 23:59 23:59 23:59 23:59 Intake Total 103 2560 3018 1530 Output Total 150 2125 1425 300 Balance -47 435 1593 1230 Patient's weight 50.031 kg 50.491 kg 51.029 kg General: Cooperative, Moderate distress, Weakness. negative: Alert, Oriented x3 HEENT: Normal, PERRLA, EOMI, Anicteric Sclera, Mucous membr. moist/pink Neck: Non-tender, Full range of motion, Normal Trachea alignment, Normal inspection, No Masses palpable, No Thyromegaly palpable Lymphatics: Normal Respiratory: Normal - CTA, Diminished Cardiovascular: Regular rate and rhythm, Normal S1, Normal S2 GI: Tenderness, Generalized. negative: Normal bowel sounds Extremities/Musculoskeletal: DJD, FROM Skin: Warm,Dry and Intact, No rashes, No breakdown Neurological: Strength at 5/5 X4 ext, Normal tone, Cranial nerves 3-12 NL, Drowsy, Somnolent, Lethargy Psych/Mental Status: Drowsy, Somnolent Lab/DI/Studies Reviewed: Laboratory Tests 12/08/16 12/08/16 07:22 07:22 WBC 12.3 H Hgb 12.5 Hct 37.5 Plt Count 185 Neut % (Auto) 82.3 H Lymph % (Auto) 8.4 L [place] % (Auto) 8.9 Sodium 143 Potassium 3.8 Chloride 110 H Carbon Dioxide 24 Anion Gap 13 BUN 16 Creatinine 0.50 L Estimated GFR (MDRD) > 60 Glucose 73 Calculated Osmolality 275 Calcium 8.4 - Assessment (1) Partial small bowel obstruction Acute K56.69 - OTHER INTESTINAL OBSTRUCTION Comment/Plan: Less tender and distended today. No further guarding. Some migraine headaches. Less feverish appearing. Appreciate surgery evaluation. Still appears obstructed and may require surgery (2) Nausea and vomiting Acute R11.2 - NAUSEA WITH VOMITING, UNSPECIFIED Qualifiers: Vomiting type: unspecified Vomiting Intractability: non-intractable Qualified Code(s): R11.2 - Nausea with vomiting, unspecified Comment/Plan: NG tube in place. Pain control and p.r.n. anti emetics. (3) Abdominal pain, periumbilical Acute R10.33 - PERIUMBILICAL PAIN Comment/Plan: And also other parts of the abdomen. Plan: IV morphine prn. Treat small bowel obstruction. (4) Diarrhea Acute R19.7 - DIARRHEA, UNSPECIFIED Qualifiers: Diarrhea type: unspecified type Qualified Code(s): R19.7 - Diarrhea, unspecified Comment/Plan: Usually has chronic constipation. Had some diarrhea on the day of admission. Plan: Monitor stool. If she has persistent diarrhea, consider further evaluation. (5) Nephrolithiasis Acute N20.0 - CALCULUS OF KIDNEY Comment/Plan: She does have some pain in the right back. Could also have pain due to kidney stone, or it could all be due to the small bowel obstruction. Plan: Treat SBO. Follow up as an outpatient with a urologist. 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
--- NOTE | 2016-12-08 15:42 | PCM.SURGRO ---
- Subjective Patient: Reports: Feels better, Pain is less, Bowel Movement - Objective / Physical Exam Vital Signs: Temperature: 98.7 F (12/08/16 13:54) HR: 80 (12/08/16 13:54)RR: 20 (12/08/16 13: 54) BP: 124/57 (12/08/16 13:54)Pulse Ox: 93 (12/08/16 13:54) General: Alert, Oriented x3, Cooperative, No acute distress HEENT: Anicteric Sclera Respiratory: negative: Rales, Rhonchi, Wheezes Cardiovascular: Regular rate and rhythm, No Gallops,Rubs/Murmurs Gastrointestinal: Soft. negative: Distended, Tender, Guarding Back: negative: Ecchymosis, CVA Tenderness Extremities: negative: Swelling, Edema, Clubbing, Cyanosis Psych/Mental Status: Cooperative. negative: Agitated, Anxious Skin: Warm,Dry and Intact. negative: No rashes, No breakdown Laboratory/Diagnostics Reviewed: 12/08/16 07:22 12/08/16 07:22 Laboratory Results - last 24 hr 12/08/16 12/08/16 07:22 07:22 WBC 12.3 H RBC 4.30 Hgb 12.5 Hct 37.5 MCV 87 MCH 29.1 MCHC 33.3 RDW 12.8 Plt Count 185 MPV 8.3 Neut % (Auto) 82.3 H Lymph % (Auto) 8.4 L [place] % (Auto) 8.9 Eos % (Auto) 0.2 Baso % (Auto) 0.2 Absolute Neuts (auto) 10.09 H Absolute Lymphs (auto) 0.98 Sodium 143 Potassium 3.8 Chloride 110 H Carbon Dioxide 24 Anion Gap 13 BUN 16 Creatinine 0.50 L Estimated GFR (MDRD) > 60 Glucose 73 Calculated Osmolality 275 Calcium 8.4 - Assessment and Plan (1) Abdominal pain Acute R10.9 - UNSPECIFIED ABDOMINAL PAIN Present on Admission: Yes (2) Nausea and vomiting Acute R11.2 - NAUSEA WITH VOMITING, UNSPECIFIED Present on Admission: Yes unspecified non-intractable R11.2 - Nausea with vomiting, unspecified (3) Partial small bowel obstruction Acute K56.69 - OTHER INTESTINAL OBSTRUCTION Present on Admission: Yes Plan: XRay appears to be improving. She remains non distended. No guarding no peritoneal signs). May need to hae SBFT tomorrow. Will try clamping NGT for now. Discussed case with anesthesia as she may have airway issues if in need of surgery.
[2016-12-08] MEDS: ENOXAPARIN 40 MG/0.4 ML PFS SQ SCH (18:20)
[2016-12-09] MEDS: MORPHINE 2 MG/ML INJECTION IV PRN ×5 (00:22→23:52)
[2016-12-09] MEDS: NS 1,000 ML IV SCH ×5 (02:44→23:53)
[2016-12-09] MEDS: IMIPENEM CILASTATIN 250 MG in D5W 100 ML IV SCH ×4 (03:36→21:16)
[2016-12-09] MEDS: ONDANSETRON HCL 4 MG/2 ML VIAL IV PRN ×2 (09:14→21:16)
--- NOTE | 2016-12-09 10:54 | GENMEDPROG ---
Chief Complaint: SBO, N&V, abdominal pain, Currently: Reports: Nausea and Vomiting, Abdominal Pain (Severe 10/10). Denies : Cough, Wheezing, PADRON, SOB DVT Prophylaxis: Yes - Physical Examination Vital Signs and I&O: Last Vital Signs Temp 98.6 F 12/09/16 05:00 Pulse 73 12/09/16 05:00 Resp 20 12/09/16 05:00 BP 130/64 12/09/16 05:00 Pulse Ox 92 12/09/16 05:00 Oxygen Pulse Oxygen Saturation 92 O2 Device Room Air Oxygen Flow Rate Fraction of Inspired Oxygen ( FIO2) Intake & Output 12/06/16 12/07/16 12/08/16 12/09/16 23:59 23:59 23:59 23:59 Intake Total 2560 3018 2573 920 Output Total 2125 1425 665 725 Balance 435 1593 1908 195 Patient's weight 50.491 kg 51.029 kg 50.802 kg General: Cooperative, Moderate distress, Weakness. negative: Alert, Oriented x3 HEENT: Normal, PERRLA, EOMI, Anicteric Sclera, Mucous membr. moist/pink Neck: Non-tender, Full range of motion, Normal Trachea alignment, Normal inspection, No Masses palpable, No Thyromegaly palpable Lymphatics: Normal Respiratory: Normal - CTA, Diminished Cardiovascular: Regular rate and rhythm, Normal S1, Normal S2 GI: Tenderness, Generalized. negative: Normal bowel sounds Extremities/Musculoskeletal: DJD, FROM Skin: Warm,Dry and Intact, No rashes, No breakdown Neurological: Strength at 5/5 X4 ext, Normal tone, Cranial nerves 3-12 NL, Drowsy, Somnolent, Lethargy Psych/Mental Status: Drowsy, Somnolent Lab/DI/Studies Reviewed: ABD x-ray: FINDINGS: Nasogastric tube is again seen within the stomach. Oral contrast material is seen within the colon which is mildly distended. There also mildly dilated small bowel loops seen in the left pelvis, which have decreased since previous study. This may be due to an improving partial small bowel obstruction or ileus. IMPRESSION: Interval improvement in partial small bowel obstruction versus ileus. Electronically Signed By: John Zamorano M.D. On: 12/09/2016 12:38 - Assessment (1) Partial small bowel obstruction Acute K56.69 - OTHER INTESTINAL OBSTRUCTION Comment/Plan: Less tender and distended today. No further guarding. Some migraine headaches. Less feverish appearing. Appreciate surgery evaluation. Still appears obstructed and may require surgery (2) Nausea and vomiting Resolved R11.2 - NAUSEA WITH VOMITING, UNSPECIFIED Qualifiers: Vomiting type: unspecified Vomiting Intractability: non-intractable Qualified Code(s): R11.2 - Nausea with vomiting, unspecified Comment/Plan: NG tube in place. Pain control and p.r.n. anti emetics. (3) Abdominal pain, periumbilical Acute R10.33 - PERIUMBILICAL PAIN Comment/Plan: And also other parts of the abdomen. Plan: IV morphine prn. Treat small bowel obstruction. (4) Diarrhea Acute R19.7 - DIARRHEA, UNSPECIFIED Qualifiers: Diarrhea type: unspecified type Qualified Code(s): R19.7 - Diarrhea, unspecified Comment/Plan: Usually has chronic constipation. Had some diarrhea on the day of admission. Plan: Monitor stool. If she has persistent diarrhea, consider further evaluation. (5) Nephrolithiasis Acute N20.0 - CALCULUS OF KIDNEY Comment/Plan: She does have some pain in the right back. Could also have pain due to kidney stone, or it could all be due to the small bowel obstruction. Has only a 5mm stone, unlikely to be causing pain. Treat SBO. Follow up as an outpatient with a urologist. 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
--- NOTE | 2016-12-09 12:41 | DIRPT ---
CLINICAL DATA: Small bowel obstruction. EXAM: ABDOMEN - 2 VIEW COMPARISON: 12/08/2016 FINDINGS: Nasogastric tube is again seen within the stomach. Oral contrast material is seen within the colon which is mildly distended. There also mildly dilated small bowel loops seen in the left pelvis, which have decreased since previous study. This may be due to an improving partial small bowel obstruction or ileus. IMPRESSION: Interval improvement in partial small bowel obstruction versus ileus. Electronically Signed By: John Zamorano M.D. On: 12/09/2016 12:38
[2016-12-09] MEDS ORDERED: Vaccine Screening Complete SCH (13:00)
[2016-12-09] MEDS: ENOXAPARIN 40 MG/0.4 ML PFS SQ SCH (17:23)
[2016-12-10] MEDS: IMIPENEM CILASTATIN 250 MG in D5W 100 ML IV SCH ×5 (02:46→21:01)
[2016-12-10] MEDS: MORPHINE 2 MG/ML INJECTION IV PRN ×4 (03:01→19:33)
[2016-12-10] MEDS ORDERED: DIATRIZOATE MEGLMINE/SODIUM 30 ML BOTTLE ONE (08:42)
[2016-12-10] MEDS ORDERED: BARIUM SULFATE ONE (08:42)
--- NOTE | 2016-12-10 10:57 | PCM.SURGRO ---
- Objective / Physical Exam Vital Signs: Temperature: 98.3 F (12/10/16 05:38) HR: 74 (12/10/16 05:38)RR: 18 (12/10/16 05: 38) BP: 115/54 (12/10/16 05:38)Pulse Ox: 84 (12/10/16 07:14) General: Alert, Cooperative HEENT: Anicteric Sclera Respiratory: Normal - CTA, Diminished. negative: Rales, Rhonchi Cardiovascular: Regular rate and rhythm Gastrointestinal: Soft. 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 Further plans will depend of findings.
[2016-12-10] MEDS: NS 1,000 ML IV SCH ×2 (11:42→23:25)
--- NOTE | 2016-12-10 12:04 | DIRPT ---
CLINICAL DATA: 61-year-old admitted 5 days ago with partial small bowel obstruction for which the patient has undergone nasogastric tube decompression. Followup evaluation. EXAM: SMALL BOWEL SERIES COMPARISON: Abdomen x-rays yesterday dating back to 12/06/2016. CT abdomen and pelvis 12/05/2016. TECHNIQUE: 16 ounces of thin barium were introduced into the stomach via the indwelling nasogastric tube and serial small bowel images were obtained, including spot views of the terminal ileum. FLUOROSCOPY TIME: Radiation Exposure Index (as provided by the fluoroscopic device): 23.44 mGy Fluoroscopy Time (in minutes and seconds): 1 min 6 sec Number of Acquired Images: 0 FINDINGS: Preliminary housekeeping associate image demonstrates residual contrast material in the cecum and proximal ascending colon related to the CT 5 days ago. Serial images obtained after thin barium was introduced via the indwelling nasogastric tube reveals no residual small bowel obstruction. Transit time through the small bowel is normal with barium reaching the colon in 1 hour 30 min. There is mild dilation of a few loops of ileum in the right lower quadrant, though these all demonstrated normal peristalsis at fluoroscopic evaluation. A discrete adhesion was not visualized. The terminal ileum is normal in appearance. IMPRESSION: No evidence of residual small bowel obstruction. Electronically Signed By: Felix Parra M.D. On: 12/10/2016 11:42
--- NOTE | 2016-12-10 14:19 | GENMEDPROG ---
Subjective Note: patient coughing more last night & today, needed oxygen now, doesn't usually Currently: Reports: Nausea and Vomiting, Abdominal Pain (Severe 10/10). Denies : Cough, Wheezing, PADRON, SOB DVT Prophylaxis: Yes - Physical Examination Vital Signs and I&O: Last Vital Signs Temp 98.1 F 12/10/16 11:35 Pulse 60 12/10/16 11:35 Resp 16 12/10/16 11:35 BP 141/61 12/10/16 11:35 Pulse Ox 96 12/10/16 11:35 Oxygen Pulse Oxygen Saturation 96 O2 Device Room Air Oxygen Flow Rate Fraction of Inspired Oxygen ( FIO2) Intake & Output 12/07/16 12/08/16 12/09/16 12/10/16 23:59 23:59 23:59 23:59 Intake Total 3018 2573 3262 558 Output Total 1000 479 0217 500 Balance 1593 1908 1887 58 Patient's weight 51.029 kg 50.802 kg 49.527 kg General: Alert, Cooperative HEENT: PERRLA, EOMI, Anicteric Sclera, Other (facial dystocia) Neck: Limited range of motion Lymphatics: Normal Respiratory: Diminished, Rales, Tachypnea. negative: Rhonchi Cardiovascular: Regular rate and rhythm, Normal S1, Normal S2 GI: Normal bowel sounds, Soft, No masses Extremities/Musculoskeletal: negative: Swelling, Edema, Clubbing Skin: Warm,Dry and Intact, No rashes, No breakdown Neurological: Strength at 5/5 X4 ext, Normal tone, Cranial nerves 3-12 NL, Other (APHASIC). negative: Normal speech (COMMUNIC[employer] W/ SIGN LANGUAGE) Psych/Mental Status: Appropriate, Normal Affect, Cooperative Lab/DI/Studies Reviewed: FINDINGS: Preliminary transit mechanic image demonstrates residual contrast material in the cecum and proximal ascending colon related to the CT 5 days ago. Serial images obtained after thin barium was introduced via the indwelling nasogastric tube reveals no residual small bowel obstruction. Transit time through the small bowel is normal with barium reaching the colon in 1 hour 30 min. There is mild dilation of a few loops of ileum in the right lower quadrant, though these all demonstrated normal peristalsis at fluoroscopic evaluation. A discrete adhesion was not visualized. The terminal ileum is normal in appearance. IMPRESSION: No evidence of residual small bowel obstruction. Electronically Signed By: Felix Parra M.D. On: 12/10/2016 11:42 CXR: FINDINGS: Mildly enlarged cardiac silhouette. Interval patchy opacity in both lower lung zones. Small bilateral pleural effusions. Diffuse osteopenia. Right jugular catheter tip in the region of the right superior cavoatrial junction or upper right atrium. Nasogastric tube tip in the mid stomach. IMPRESSION: Bibasilar probable pneumonia with small bilateral pleural effusions. Electronically Signed By: Owen Aquino M.D. On: 12/10/2016 15:38 - Assessment (1) Pneumonia Acute J18.9 - PNEUMONIA, UNSPECIFIED ORGANISM Qualifiers: Pneumonia type: aspiration pneumonia Aspiration pneumonia type: due to gastric secretions Laterality: bilateral Lung location: lower lobe of lung Qualified Code(s): J69.0 - Pneumonitis due to inhalation of food and vomit Comment/Plan: Started on IV Primaxin for aspiration pneumonia (2) Partial small bowel obstruction Acute K56.69 - OTHER INTESTINAL OBSTRUCTION Comment/Plan: Obstruction seems to have resolved- still has a large amount of gastric drainage. Radiologic studies show improvement. (3) Nausea and vomiting Resolved R11.2 - NAUSEA WITH VOMITING, UNSPECIFIED Qualifiers: Vomiting type: unspecified Vomiting Intractability: non-intractable Qualified Code(s): R11.2 - Nausea with vomiting, unspecified Comment/Plan: NG tube in place. Pain control and p.r.n. anti emetics. (4) Abdominal pain, periumbilical Acute R10.33 - PERIUMBILICAL PAIN Comment/Plan: And also other parts of the abdomen. Plan: IV morphine prn. Treat small bowel obstruction. (5) Diarrhea Acute R19.7 - DIARRHEA, UNSPECIFIED Qualifiers: Diarrhea type: unspecified type Qualified Code(s): R19.7 - Diarrhea, unspecified Comment/Plan: Usually has chronic constipation. Had some diarrhea on the day of admission. Plan: Monitor stool. If she has persistent diarrhea, consider further evaluation. (6) Nephrolithiasis Acute N20.0 - CALCULUS OF KIDNEY Comment/Plan: She does have some pain in the right back. Could also have pain due to kidney stone, or it could all be due to the small bowel obstruction. Has only a 5mm stone, unlikely to be causing pain. Treat SBO. Follow up as an outpatient with a urologist. 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
--- NOTE | 2016-12-10 15:41 | DIRPT ---
CLINICAL DATA: Cough. Hypoxia. EXAM: PORTABLE CHEST 1 VIEW COMPARISON: 09/26/2012. FINDINGS: Mildly enlarged cardiac silhouette. Interval patchy opacity in both lower lung zones. Small bilateral pleural effusions. Diffuse osteopenia. Right jugular catheter tip in the region of the right superior cavoatrial junction or upper right atrium. Nasogastric tube tip in the mid stomach. IMPRESSION: Bibasilar probable pneumonia with small bilateral pleural effusions. Electronically Signed By: Owen Aquino M.D. On: 12/10/2016 15:38
[2016-12-10] MEDS: ENOXAPARIN 40 MG/0.4 ML PFS SQ SCH (18:02)
[2016-12-11] MEDS: SUMATRIPTAN SUCCINATE 25 MG TAB PO PRN (01:35)
[2016-12-11] MEDS: NS 1,000 ML IV SCH ×4 (03:56→21:10)
[2016-12-11] MEDS: IMIPENEM CILASTATIN 250 MG in D5W 100 ML IV SCH ×4 (03:56→21:10)
--- NOTE | 2016-12-11 15:02 | PCM.SURGRO ---
- Subjective Patient: Reports: No new complaints, Feels better, Flatus, Bowel Movement - Objective / Physical Exam Vital Signs: Temperature: 98.2 F (12/11/16 13:32) HR: 79 (12/11/16 13:32)RR: 18 (12/11/16 13: 32) BP: 129/60 (12/11/16 13:32)Pulse Ox: 98 (12/11/16 13:32) General: Alert, Oriented x3, Cooperative Respiratory: Diminished, Rhonchi. negative: Stridor, Tachypnea Cardiovascular: Regular rate and rhythm, No Gallops,Rubs/Murmurs Gastrointestinal: Soft. negative: Distended, Tender, Guarding Back: negative: Ecchymosis, CVA Tenderness Extremities: negative: Edema, Clubbing, Cyanosis Psych/Mental Status: Cooperative. 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 She tolerated clears and fulls. Will advance to low residue diet and would have her stay on this for a while. Further plans per medical service.
[2016-12-11] MEDS: ENOXAPARIN 40 MG/0.4 ML PFS SQ SCH (18:10)
--- NOTE | 2016-12-11 19:22 | GENMEDPROG ---
Chief Complaint: Aspiration pneumonia, SBO, Currently: Reports: Nausea and Vomiting, Abdominal Pain (Severe /). Denies : Cough, Wheezing, PADRON, SOB DVT Prophylaxis: Yes - Physical Examination Vital Signs and I&O: Last Vital Signs Temp 98.2 F 12/11/16 13:32 Pulse 79 12/11/16 13:32 Resp 18 12/11/16 13:32 BP 129/60 12/11/16 13:32 Pulse Ox 98 12/11/16 13:32 Oxygen Pulse Oxygen Saturation 98 O2 Device Room Air Oxygen Flow Rate 2 Fraction of Inspired Oxygen ( FIO2) Intake & Output 12/08/16 12/09/16 12/10/16 12/11/16 23:59 23:59 23:59 23:59 Intake Total 2573 3262 2288 3723 Output Total 665 1375 1400 1327 Balance 1908 0292 856 8908 Patient's weight 50.802 kg 49.527 kg 51.426 kg General: Alert, Oriented x3, Cooperative Respiratory: Diminished, Rhonchi. negative: Stridor, Tachypnea Cardiovascular: Regular rate and rhythm, No Gallops,Rubs/Murmurs Extremities/Musculoskeletal: negative: Edema, Clubbing, Cyanosis Skin: Warm,Dry and Intact, No breakdown Psych/Mental Status: Cooperative. negative: Agitated, Anxious - Assessment (1) Pneumonia Acute J18.9 - PNEUMONIA, UNSPECIFIED ORGANISM Qualifiers: Pneumonia type: aspiration pneumonia Aspiration pneumonia type: due to gastric secretions Laterality: bilateral Lung location: lower lobe of lung Qualified Code(s): J69.0 - Pneumonitis due to inhalation of food and vomit Comment/Plan: Started on IV Primaxin for aspiration pneumonia (2) Partial small bowel obstruction Acute K56.69 - OTHER INTESTINAL OBSTRUCTION Comment/Plan: Obstruction seems to have resolved- still has a large amount of gastric drainage. Radiologic studies show improvement. (3) Nausea and vomiting Resolved R11.2 - NAUSEA WITH VOMITING, UNSPECIFIED Qualifiers: Vomiting type: unspecified Vomiting Intractability: non-intractable Qualified Code(s): R11.2 - Nausea with vomiting, unspecified Comment/Plan: NG tube in place. Pain control and p.r.n. anti emetics. (4) Abdominal pain, periumbilical Acute R10.33 - PERIUMBILICAL PAIN Comment/Plan: And also other parts of the abdomen. Plan: IV morphine prn. Treat small bowel obstruction. (5) Diarrhea Acute R19.7 - DIARRHEA, UNSPECIFIED Qualifiers: Diarrhea type: unspecified type Qualified Code(s): R19.7 - Diarrhea, unspecified Comment/Plan: Usually has chronic constipation. Had some diarrhea on the day of admission. Plan: Monitor stool. If she has persistent diarrhea, consider further evaluation. (6) Nephrolithiasis Acute N20.0 - CALCULUS OF KIDNEY Comment/Plan: She does have some pain in the right back. Could also have pain due to kidney stone, or it could all be due to the small bowel obstruction. Has only a 5mm stone, unlikely to be causing pain. Treat SBO. Follow up as an outpatient with a urologist. 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
[2016-12-11] MEDS: MORPHINE 2 MG/ML INJECTION IV PRN (22:04)
[2016-12-12] MEDS: NS 1,000 ML IV SCH (02:36)
[2016-12-12] MEDS: MORPHINE 2 MG/ML INJECTION IV PRN (02:42)
[2016-12-12 06:19] VITALS: BP 123/57; PULSE 72; TEMP 98.8
[2016-12-12] MEDS: IMIPENEM CILASTATIN 250 MG in D5W 100 ML IV SCH ×2 (07:52→15:18)
--- NOTE | 2016-12-12 09:41 | PCM.DCS92 ---
- Final/Secondary Discharge Diagnosis (1) Partial small bowel obstruction Acute K56.69 - OTHER INTESTINAL OBSTRUCTION Present on Admission: Yes Comment: Obstruction seems to have resolved- tolerating regular soft diet. Radiologic studies show improvement. (2) Pneumonia Acute J18.9 - PNEUMONIA, UNSPECIFIED ORGANISM Present on Admission: No aspiration pneumonia due to gastric secretions bilateral lower lobe of lung J69.0 - Pneumonitis due to inhalation of food and vomit Comment: Started on IV Primaxin for aspiration pneumonia. will discharge home on Omnicef suspension 5 mL BID x 5 days. Plan/Goal/Comment: WILL DISCHARGE HOME ON ORAL ANTIBIOTIC (3) Nausea and vomiting Resolved R11.2 - NAUSEA WITH VOMITING, UNSPECIFIED Present on Admission: Yes unspecified non-intractable R11.2 - Nausea with vomiting, unspecified Comment: NG tube removed. Patient tolerating full liquid diet. Pain control and p.r.n. anti emetics. (4) Abdominal pain, periumbilical Resolved R10.33 - PERIUMBILICAL PAIN Present on Admission: Yes Comment: Treated with IV morphine prn. Treat small bowel obstruction. Resolved at this time. (5) Diarrhea Resolved R19.7 - DIARRHEA, UNSPECIFIED Present on Admission: Yes unspecified type R19.7 - Diarrhea, unspecified Comment: Usually has chronic constipation. Had some diarrhea on the day of admission. Monitor stool, has resolved. (6) Nephrolithiasis Acute N20.0 - CALCULUS OF KIDNEY Present on Admission: Yes Comment: She does have some pain in the right back. Could also have pain due to kidney stone, or it could all be due to the small bowel obstruction. Has only a 5mm stone, unlikely to be causing pain. Treat SBO. Follow up as an outpatient with a urologist. 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 Present on Admission: Yes Discharge Disposition: Home Discharge Condition: Improved Cognitive Discharge Status: Unimpaired Fuctional Discharge Status: Independent Physician Follow up/Referrals: Eliecer De La Cruz MD [Primary Care Provider] - One Week Home Medications / New Prescriptions: New Cefdinir [Omnicef] 250 mg PO BID #100 susp.recon No Action Drasco-3 Fatty Acids/Fish Oil [Fish Oil 1,000 mg Softgel] 1,000 mg PO DAILY Calcium Carbonate/Vitamin D3 [Calcium + Vit D Caplet (600mg/400IU)] 1 tab PO DAILY Aspirin (Enteric Coated) [Halfprin] 81 mg PO DAILY PEG-Electrolytes (Miralax) [Miralax] 17 gm PO DAILY Ketorolac Tromethamine 10 mg PO Q6H PRN #20 tab PRN Reason: Pain O2 Device: Room Air Diet at Discharge: Heart Healthy, Soft Activity: As Tolerated Call Office For: Worsening Symptoms - DC Summary Notes Hospital Course Note:: Discharge summary on patient named ZULMA HERNANDEZ admitted to [facility] on 12/05/16 by David Rojas MD. Date of discharge is []. The patient is a 61 yo woman with recurrent small bowel obstructions who presents with abdominal pain. 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 She and her mother provide the history. Onset: yesterday. Duration: intermittent. Had 1 severe episode last night and 3 today. Location: upper abdomen and periumbilical. Radiation: sometimes to right back. Character: 5-6/10 and sharp. Alleviated by: Nothing. Exacerbated by: Nothing. Associated Symptoms: Nausea, abdominal pain, vomiting x 1, diarrhea. No constipation. Had minimal bloody stool x1. Small amount hematuria is possible. Treatments: none at home except usual medications. The patient was admitted, had an NG tube placed to low intermittent suction and was kept NPO to allow for bowel rest. She had a large amount of gastric secretions during the first 48-72 hours, but it began to improve after that. She was noted to become hypoxic at one point, and required oxygen. A portable chest x-ray confirmed the presence of an aspiration pneumonia. The patient had been vomiting quite a bit prior to admission. She was started on IV Primaxin for an aspiration pneumonia and she improved steadily after that, and within another three days, her oxygen requirements decreased and her bowels began to improve. We were able to remove the NG tube and advance her diet. Currently she is tolerating a soft diet, without nausea. She does have an esophageal stricture, so she still needs to be careful with solid foods, and use ground meats and a soft diet. She should follow-up with Dr. Nuñez for dilatation of the esophageal stricture intermittently. She will be discharged home on oral antibiotics for her residual pneumonia, and is to follow-up with Dr. De La Cruz in 1 week. Total Time: 35 min Code: 18099 (>30min.) - Physical Exam Vital Signs: Last Vital Signs Temp 98.8 F 12/12/16 06:00 Pulse 72 12/12/16 06:00 Resp 18 12/12/16 06:00 BP 123/57 L 12/12/16 06:00 Pulse Ox 94 12/12/16 08:00 Oxygen Pulse Oxygen Saturation 94 O2 Device Room Air Oxygen Flow Rate 2 Fraction of Inspired Oxygen ( FIO2) Constitutional: No apparent distress, Alert. negative: Confused Oriented to: Time, Person, Place - HEENT Head: Deformity. negative: Normal Eye: Normal (perrl: eomi) Oropharynx: negative: Drooling, Exudate, Red ENT EAC: Normal Nose: No Symptoms Reported. negative: Bleeding, Congestion, Discharge - Respiratory/Cardiovascular Respiratory: Diminished. negative: Stridor, Tachypnea Cardiovascular: Normal (REGULAR RHYTHM AND RATE) - GI Auscultation: Normal Palpation: Normal. negative: Enlarged liver, Fluid Wave Tenderness: Non tender, Other (distended). negative: Moderate, Guarding, Rebound Rectal Exam: Deferred - Musculoskeletal Back: negative: Ecchymosis, CVA Tenderness Extremities: Normal. negative: Clubbing, Cyanosis, Edema - Integumentary Skin: Warm, Dry Lymphatics: Normal - Neurologic Memory Impaired: Normal Motor Function: Normal Cranial Nerve: Normal Cerebellar: Normal Mood Description: Appropriate. negative: Anxious, Agitated Thought: Coherent Perception: Normal
== END 2016-12-12 15:27 | disposition home or self-care (01) | DRG 388 ==
LOC: ED 17:45 → MPS3 19:58
PROVIDERS: ADMIT Internal Medicine; ATTEND Family Medicine
DX: K56.69 Other intestinal obstruction (principal); J69.0 Pneumonitis due to inhalation of food and vomit; J90 Pleural effusion, not elsewhere classified; Q75.4 Mandibulofacial dysostosis; N20.0 Calculus of kidney; R19.7 Diarrhea, unspecified; K21.9 Gastro-esophageal reflux disease without esophagitis; D53.9 Nutritional anemia, unspecified; Z87.19 Personal history of other diseases of the digestive system; Z79.82 Long term (current) use of aspirin; Z79.899 Other long term (current) drug therapy; Z86.010 Personal history of colon polyps; H91.90 Unspecified hearing loss, unspecified ear; E03.9 Hypothyroidism, unspecified; E86.0 Dehydration; G43.909 Migraine, unspecified, not intractable, without status migrainosus; R31.9 Hematuria, unspecified
CPT/HCPCS: 36415; 71010; 74020; 74022; 74250; 80048; 80053; 81001; 83690; 83735; 85007; 85025; 85027; 85610; 93005; 96372; 96374; 99283; J0743; J1650; J2270; J2405; J3490; J7060